=== PATIENT | female | born 1960 | race Caucasian/White ===

== ENCOUNTER → 2018-10-19 | Outpatient (REF) | payer OTHER ==
[2018-10-24 08:53] LABS: ASPERGILLUS FLAVUS ABY Negative (Neg:<1:1); ASPERGILLUS FUMIGATUS ABY Negative (Neg:<1:1); ASPERGILLUS NIGER ABY Negative (Neg:<1:1); BLASTOMYCES ANTIBODY LEVEL Negative (Neg:<1:1); CRYPTOCOCCUS ANTIGEN SER Negative (Negative); HISTOPLASMOSIS ANTIBODY Negative (Neg:<1:1)
[2018-10-25 15:42] LABS: ASPERGILLUS FUMIGATUS AB Negative (Negative); AUREOBASIDIUM PULLULANS Negative (Negative); MICROPOLYSPORA FAENI AB Negative (Negative); PIGEON SERUM AB Negative (Negative); THERMOACTINOMYCES SACCHARI Negative (Negative); THERMOACTINOMYCES VULGARIS Negative (Negative)
== END ==
LOC: M LAB REF 13:00
PROVIDERS: ATTEND Internal Medicine Pulmonary Disease
DX: R91.8 Other nonspecific abnormal finding of lung field (principal)

== ENCOUNTER → 2018-12-05 | Outpatient (CLI) | payer OTHER ==
--- NOTE | 2018-12-07 10:35 | SLEEPCENT ---
DATE OF PROCEDURE: 12/05/2018 ORDERING PROVIDER: Dr. Menezes Nocturnal polysomnography was performed for the titration of pressure therapy in this patient with obstructive sleep apnea syndrome. For testing, the patient was fit with a [employer] Quattro full face mask of small size, 5 cm of water pressure were applied to the circuit, and the lights were extinguished. 7 hours and 13 minutes of data were reviewed. There were 370 minutes of sleep identified. Sleep latency was short at 7 minutes. Rapid eye movement (REM) latency was delayed at 284 minutes. Sleep architecture did improve late in the study with one REM cycle noted. Overall sleep efficiency was 86.3%. The electrocardiogram showed a sinus rhythm with an average heart rate of 66 beats per minute. Electroencephalogram (EEG) showed coarsening in background. No focal events were identified. Persistence of respiratory events prompted an increase in C-PAP to what appeared to be an optimal pressure of 15. Persistent oxygen desaturations into the 80s prompted the addition of supplemental oxygen. Best sleep was seen on C-PAP pressure of 15 with 2 liters of oxygen bled through the system to address hypoventilatory oxygen desaturation. There was some activity in the limb leads but no arousals emanating from these events, and remaining measures of sleep physiology were normal. IMPRESSION: Obstructive sleep apnea syndrome (G47.33). RECOMMENDATIONS: Nightly use of pressure therapy 15 cm of water with 2 liters of oxygen bled through the system to address oxygen desaturation.
== END ==
LOC: M SLEEP 19:25
PROVIDERS: ATTEND Internal Medicine Pulmonary Disease
DX: G47.33 Obstructive sleep apnea (adult) (pediatric) (principal)

== ENCOUNTER → 2019-05-30 | Outpatient (REF) | payer OTHER ==
[2019-05-30 18:09] LABS: BASO # 0.1 10^3/uL (0.0-0.2); BASO % 0.8 % (0.0-1.0); EOS # 0.2 10^3/uL (0.0-0.5); HEMATOCRIT 38.4 % (36.0-47.0); HEMOGLOBIN 12.1 g/dl (12.0-15.5); LYMPH # 1.6 10^3/uL (1.5-5.0); LYMPH % 20.1 % (24.0-44.0); MEAN CORPUSCULAR HEMOGLOBIN 28.9 pg (27.0-33.0); MEAN CORPUSCULAR HGB CONC 31.5 g/dl (32.0-36.5); MEAN CORPUSCULAR VOLUME 91.6 fl (80.0-96.0); MONO # 0.6 10^3/uL (0.0-0.8); NEUTROPHILS # 5.4 10^3/uL (1.5-8.5); NEUTROPHILS % 68.5 % (36.0-66.0); PLATELET COUNT, AUTOMATED 255 10^3/uL (150-450); RED BLOOD COUNT 4.19 10^6/uL (4.00-5.40); WHITE BLOOD COUNT 7.9 10^3/uL (4.0-10.0)
[2019-05-30 18:38] LABS: IMMUNOGLOBULIN M 67.3 MG/DL (40-230)
[2019-06-03 00:07] LABS: E005-IgE Dog Dander 7.86 kU/L (Class IV); G002-IgE Bermuda Grass 2.93 kU/L (Class III); M001-IgE Penicillium chrysogen < 0.10 kU/L (Class 0); M002 IgE Cladosporium herbaru < 0.10 kU/L (Class 0); M003 IgE Aspergillus fumigatu < 0.10 kU/L (Class 0); M006-IgE Alternaria alternata 0.24 kU/L (Class 0/I); T001-IgE Maple/Box Elder 2.41 kU/L (Class III); T003-IgE Common Silver Birch 3.65 kU/L (Class III); T006-IgE Cedar, Mountain 0.42 kU/L (Class I); T015-IgE Ash, White 5.18 kU/L (Class IV); T041-IgE Hickory, White 1.32 kU/L (Class II); T070-IgE White Mulberry < 0.10 kU/L (Class 0); W001-IgE Ragweed, Short 5.23 kU/L (Class IV); W009-IgE Plantain, English 3.07 kU/L (Class III); W014-IgE Pigweed, Rough 1.36 kU/L (Class II); W018-IgE Sheep Sorrel 4.37 kU/L (Class IV)
== END ==
LOC: M LAB REF 17:22
PROVIDERS: ATTEND Internal Medicine Pulmonary Disease
DX: J44.9 Chronic obstructive pulmonary disease, unspecified (principal); J45.40 Moderate persistent asthma, uncomplicated

== ENCOUNTER → 2022-04-18 | Outpatient (CLI) | payer OTHER | LOC: M PLAIMG 13:48 | PROVIDERS: ATTEND Internal Medicine Pulmonary Disease | DX: R91.8 Other nonspecific abnormal finding of lung field (principal) ==